=== PATIENT | female | born 2000 | race Caucasian/White ===

== ENCOUNTER 2019-10-30 20:08 | Emergency (ER) | payer MEDICAID ==
[~2019-10-30] VITALS: Ht 165.1 cm; Wt 85.3 kg
[2019-10-30 20:15] VITALS: Ht 165.1 cm; Wt 85.3 kg
[2019-10-30 21:29] VITALS: BP 119/66
== END 2019-10-30 21:29 | disposition home or self-care (01) ==
LOC: ED 20:08
DX: L03.115 Cellulitis of right lower limb (principal); R22.41 Localized swelling, mass and lump, right lower limb; Z88.0 Allergy status to penicillin
CPT/HCPCS: J0696